=== PATIENT | female | born 1995 | race Caucasian/White ===

== ENCOUNTER 2016-07-31 03:55 | Inpatient (IN) ==
--- NOTE | 2016-07-31 03:21 | OB/GYN Progress Note ---
Date of Encounter: 07/31/16 Time of Encounter: 03:07 - Assessment and Plan (1) 34 weeks gestation of Current Visit: Yes Status: Acute (2) NST (non-stress test) reactive Current Visit: Yes Status: Acute FHT: [130s; moderate variability; 15 x 15 accels: No decelerations] ] (3) premature rupture of membranes (PPROM) with unknown onset of labor Current Visit: Yes Status: Acute Patient describes that around 12:30 this morning she stood up out of bed and felt a large gush of fluid. On physical exam she is actively leaking fluid speculum positive for pooling, positive ferning, positive nitrazine. Patient is at 34 weeks and 6 days premature rupture of membranes. Cervix: dilation 1 cm, 50 % effaced, station -3, consistency medium to soft, position mid. TOCO: [Contractions irregular intervals widely spaced 1/10 pain Continue monitoring As patient has been seen at an outside hospital [facility] we are currently obtaining records, patient has signed consent. GBS status is unknown so will treat at this time with Penicillin. STAT. Labor plan: Patient approves augmentation of labor (cytotec and oxytocin) Pain management: would like epidural and Nubain for pain when indicated. Will monitor and allow patient to labor for 2 hours and then reevaluate cervix for change. May use Cytotec if indicated. Expectant management for labor. Subjective - Subjective Principal diagnosis: Labor evaluation Interval history: Patient is a 21-year-old 011 at 34 weeks and 6 days with a past medical history of tobacco abuse disorder currently at 6-10 cigarettes per day who presents for "water broke". Patient describes that around 12:30 AM she woke up feeling like she had to use the restroom and void but when she stood up huge gush of fluid saturated her clothing and caused her to go through 2 towels and 3 pairs of pants before fluid stopped leaking. Fluid was described as clear without odor. Patient admits: Unprotected intercourse 3 days ago with increase in cramping and lower abdominal pressure increased urinary frequency over the past 7 days since she "lost her mucous plug ", patient reports green vaginal discharge without odor for 1 week. Patient denies: vaginal bleeding, dysuria, pyuria, hematuria, flank pain, fever, chill, abdominal trauma or falls, nausea, vomiting. movements: Normal movements Labor Plan: Induction: Patient did not have plan for induction however she approves the use of Cytotec or oxytocin as necessary and including artificial rupture of membranes Pain control: Epidural; Nubain FHT: [130s; moderate variability; 15 x 15 accels: No decelerations] TOCO: [Contractions irregular intervals widely spaced 1/10 pain] Cervix: dilation 1 cm, 50 % effaced, station -3, consistency medium to soft, position mid. care: [facility] OB Doctor: Chiki OB history: Total pregnancies 3. 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 Last Pap smear 2013 Abnormal Pap smear denies abnormal Pap smears Sexually transmitted infections denies sexually transmitted infections such as chlamydia or gonorrhea Last menstrual period middle December 2015 Menses onset age 12 Labs: Requesting lab information from [facility]. Currently pending. Baby: [Girl] Name: Nettie Mom plans to [bottlefeed] Financial Retirement Plan Specialist: None yet. Would like Barbara umbrella supervisor. Home meds: [ vitamin] Allergies: No known drug allergies Antepartum ROS: loss of fluid, movement normal, contractions, no vaginal bleeding Objective - Vital Signs Vital Signs: Intake and Output 07/30/16 07/30/16 07/31/16 15:59 23:59 07:59 Other: Weight 65 kg Patient Weight 07/31/16 23:59 Weight 65 kg - Exam FHR: auscultation normal, category 1 Auscultation: bilateral: normal Abdomen: Present: normal appearance, soft, gravid Cervical dilation: 0-1 cm Cervix effacement: 50 station: -3
[~2016-07-31 03:55] MED LIST: Famotidine 20 MG/2 ML VIAL IVP PRN; Naloxone 0.4 MG/ML INJ IVP PRN; Ondansetron 4 MG/2 ML VIAL IVP PRN; Penicillin G Potassium 5,000,000 UNIT in D5% in Water (Mini-Bag+) 100 ML IVPB ONE
[2016-07-31] MEDS ORDERED: Ringers Solution, Lactated 1,000 ML IVC SCH (04:00)
[2016-07-31 04:15] LABS: Basophils % 0.4 %; Eosinophils # 0.2 K/mcL (0.0-0.6); Eosinophils % 1.5 %; Hematocrit 33.1 % (35.3-44.9); Hemoglobin 11.1 g/dL (11.5-15.4); Immature Granulocytes % 1.2 % (0-4); Lymphocytes # 1.3 K/mcL (0.6-4.6); Lymphocytes % 12.6 %; Mean Corpuscular HGB Conc 33.5 g/dL (31.6-35.5); Mean Corpuscular Hemoglobin 30.7 pg (28.0-33.3); Mean Corpuscular Volume 91.4 fL (83.0-100.0); Mean Platelet Volume 10.9 fL (9.4-12.4); Monocytes # 0.8 K/mcL (0.0-1.3); Monocytes % 7.3 %; Neutrophils # 7.9 K/mcL (1.6-8.9); Platelet Count 193 K/mcL (140-400); Red Blood Count 3.62 M/mcL (3.82-4.97); Red Cell Distribution Width 13.8 % (11.5-14.5)
[2016-07-31 04:17] LABS: Bilirubin,Urine Negative (Negative); Blood,Urine Negative (Negative); Clarity,Urine Cloudy (Clear); Color,Urine Yellow (Yellow); Glucose,Urine (UA) Normal (Normal); Ketones,Urine Negative (Negative); Leukocyte Esterase,Urine Trace (Negative); Nitrite,Urine Negative (Negative); Protein,Urine Negative (Neg-Trace); Specific Gravity,Urine 1.015 (1.010-1.025); Urobilinogen,Urine Normal (Normal)
[2016-07-31 04:18] LABS: Hyaline Casts,Urine None Seen per lpf (None-Few); Squamous Epithelial Cell,Urine Many per lpf (None-Few)
[2016-07-31 04:26] LABS: Amorphous Sediment,Urine Few (Few); Bacteria,Urine Moderate per hpf (None-Few); Mucus,Urine Few (Few)
--- NOTE | 2016-07-31 04:31 | OB/GYN History & Physical ---
Date of Encounter: 07/31/16 Time of Encounter: 03:07 Assessment and Plan (1) 34 weeks gestation of Current visit: Yes Status: Acute heart rate/tocometer/nitrazine test; speculum exam for ferning given chief complaint of loss of fluid. (2) NST (non-stress test) reactive Current visit: Yes Status: Acute FHT: [130s; moderate variability; 15 x 15 accels: No decelerations] ] (3) premature rupture of membranes (PPROM) with unknown onset of labor Current visit: Yes Status: Acute Patient describes that around 12:30 this morning she stood up out of bed and felt a large gush of fluid. On physical exam she is actively leaking fluid speculum positive for pooling, positive ferning, positive nitrazine. Patient is at 34 weeks and 6 days premature rupture of membranes. Cervix: dilation 1 cm, 50 % effaced, station -3, consistency medium to soft, position mid. TOCO: [Contractions irregular intervals widely spaced 1/10 pain Continue monitoring As patient has been seen at an outside hospital [facility] we are currently obtaining records, patient has signed consent. GBS status is unknown so will treat at this time with Penicillin. STAT. Labor plan: Patient approves augmentation of labor (cytotec and oxytocin) Pain management: would like epidural and Nubain for pain when indicated. Will monitor and allow patient to labor for 2 hours and then reevaluate cervix for change. May use Cytotec if indicated. Expectant management for labor. History of Present Illness Chief complaint: Loss of fluid HPI: Patient is a 21-year-old female 011 at 34 weeks and 6 days with a past medical history of tobacco abuse disorder currently at 6-10 cigarettes per day who presents for "water broke". Patient describes that around 12:30 AM she woke up feeling like she had to use the restroom and void but when she stood up huge gush of fluid saturated her clothing and caused her to go through 2 towels and 3 pairs of pants before fluid stopped leaking. Fluid was described as clear without odor. Patient admits: Unprotected intercourse 3 days ago with increase in cramping and lower abdominal pressure increased urinary frequency over the past 7 days since she "lost her mucous plug ", patient reports green vaginal discharge without odor for 1 week. Patient denies: vaginal bleeding, dysuria, pyuria, hematuria, flank pain, fever, chill, abdominal trauma or falls, nausea, vomiting. movements: Normal movements Labor Plan: Induction: Patient did not have plan for induction however she approves the use of Cytotec or oxytocin as necessary and including artificial rupture of membranes Pain control: Epidural; Nubain FHT: [130s; moderate variability; 15 x 15 accels: No decelerations] TOCO: [Contractions irregular intervals widely spaced 1/10 pain] Cervix: dilation 1 cm, 50 % effaced, station -3, consistency medium to soft, position mid. care: [facility] OB Doctor: Chiki OB history: Total pregnancies 3. 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 Last Pap smear 2013 Abnormal Pap smear denies abnormal Pap smears Sexually transmitted infections denies sexually transmitted infections such as chlamydia or gonorrhea Last menstrual period middle December 2015 Menses onset age 12 Labs: Requesting lab information from [facility]. Currently pending. Baby: [Girl] Name: Nettie Mom plans to [bottlefeed] Benzene Washer: None yet. Would like [place] property developer. Home meds: [ vitamin] Allergies: No known drug allergies Past Med Surg Social Fam HX - Past Medical History Medical history: no medical history Psychiatric history: depression - Past Surgical History Surgical History: no surgical history - Social History Smoking Status: Current every day smoker Packs per day: 5 cigarettes or less Smokeless Tobacco Status: No Alcohol use: none Drug use: none - Family History Mother Living Status: Still Living Hx Family Cardiac Disorders: No Hx Family Respiratory Disorders: No Hx Family Cancer: No Hx Family GI Disorders: No Hx Family Genitourinary Disorders: No Hx Family Endocrine Disorder: No Hx Family Musculoskeletal Disorders: No Hx Family Neuromuscular Disorders: No Hx Family Neurologic Disorders: No Hx Family HEENT Disorders: No Hx Family Autoimmune Disorders: No Hx Family Reproductive Disorders: No Hx Family Psychosocial Disorders: No Hx Family Medical Disorders: No Obstetrical History - Pregnancies : 3 Para: 1 Term: 1 : 0 Ab's: 1 Livin - History/Complications History/Complications: 1 live . one Spontaneous Medications and Allergies Doxylamine/Pyridoxine HCl [Diclegis Dr 10-10 mg Tablet] 2 tab PO HS 03/01/16 [ History] Amoxicillin [Amoxil] 500 mg PO TID #21 capsule 03/20/16 [Rx] Allergies No Known Allergies Allergy (Verified 03/01/16 17:17) Review of System OB - Constitutional Constitutional ROS IM: no chills, no fatigue, no fever(s), no frequent falls, no headache(s) - Nose, mouth, and throat Nose, mouth and throat: no dizziness, no headache(s), no nasal congestion, no post-nasal drip, no sinus pressure, no sore throat, no vertigo - Cardiovascular Cardiovascular: no chest pain, no claudication, no edema, no rapid heart rate, no syncope - Respiratory Respiratory: cough (daily chronic cough tobacco use), no dyspnea, no hemoptysis , no dyspnea on exertion, no pain on inspiration, no excessive phlegm production , no pain with cough - Gastrointestinal Gastrointestinal: cramping, no diarrhea, no dysphagia, no nausea, no vomiting - Genitourinary Genitourinary: urinary urgency, vaginal discharge, no dysuria, no genital lesions - Integumentary Integumentary: no new lesions, no rash, no sores, no swelling, no unusual bruising - Neurological Nerological: no other visual disturbances - Endocrine Endocrine: no palpitations - Hematologic/Lymphatic Hematologic/Lymphatic: no easy bleeding, no easy bruising, no lymphadenopathy Exam - Constitutional Constitutional: well developed, well nourished, no acute distress, average body habitus - HEENT HEENT: EOMI, PERRL, Normocephaly, Mucus Membranes Moist - Neck Neck exam: full ROM, normal inspection, supple, trachea midline - Lungs Respiratory exam: CTAB - Cardiovascular Cardiovascular exam: RRR, +S1, +S2 - Breasts Breast: bilateral: normal - Abdomen Abdomen: Present: bowel sounds normal, gravid, non tender - Extremities Extremities exam: full ROM, normal capillary refill, normal inspection, warm, radial pulses palpable and symetrical Deep Tendon Reflex Grade: 2+ Normal - Vulva Vulva: bilateral: normal - Vagina Vagina: Present: normal moisture - Cervix Cervix: Present: discharge Dilation: 1 Effacement: 50 Station: -3 Results Result Diagrams: 07/31/16 04:00 Abnormal lab results RBC 3.62 M/mcL (3.82-4.97) L 07/31/16 04:00 Hgb 11.1 g/dL (11.5-15.4) L 07/31/16 04:00 Hct 33.1 % (35.3-44.9) L 07/31/16 04:00 Urine Clarity Cloudy (Clear) A 07/31/16 04:00 Ur Leukocyte Esterase Trace (Negative) H 07/31/16 04:00 Urine Microscopic RBC 3-5 per hpf (0-3) H 07/31/16 04:00 Urine Microscopic WBC 5-15 per hpf (0-3) H 07/31/16 04:00 Ur Squamous Epith Cells Many per lpf (None-Few) H 07/31/16 04:00 Urine Bacteria Moderate per hpf (None-Few) H 07/31/16 04:00 Ur Culture Indicated? YES (NO) A 07/31/16 04:00 All other labs normal. - VTE Reasons for not Prescribing Prophylaxis: Treatment not Indicated - Low risk for VTE
--- NOTE | 2016-07-31 05:43 | OB Labor Progress Note ---
Date of Encounter: 07/31/16 Time of Encounter: 05:40 Labor Progress Note - Subjective Subjective: Patient's contractions have phased out. cervix still about 1 cm dilation. will give Cytotec for augmentation of labor and continue to monitor. - Vital Signs Vital Signs: BP 111/59 P 52 resp 16 Temp 36.2 C temporal - Cervix Cervix: 1cm, 50%, -3 - Heart Tones Heart Tones: 130s; moderate variability; 15 x 15 accels: No decelerations - [place]: Contractions have phased out. - Interventions Interventions: Cytotec 50 g by mouth - Plan Plan: Patient's contractions have phased out will augment labor with Cytotec 50 g by mouth and continue to monitor and evaluate cervix at regular intervals for changes.
[2016-07-31] MEDS ORDERED: miSOPROStol 100 MCG TABLET PO SCH (05:45)
[2016-07-31] MEDS ORDERED: Penicillin G Potassium 2,500,000 UNIT in D5% in Water 100 ML IVPB SCH (08:00)
--- NOTE | 2016-07-31 09:29 | OB Labor Progress Note ---
Date of Encounter: 07/31/16 Time of Encounter: 09:27 Labor Progress Note - Subjective Subjective: Pt in bed coping well with contractions - Cervix Cervix: 3/70/-3 - Heart Tones Heart Tones: 145/moderate/+accels/Occasional variable - [place]: 2-3 - Interventions Interventions: IUPC placed. PN records obtained - Plan Plan: IUPC placed, continue current management, anticipate
--- NOTE | 2016-07-31 10:13 | Anesthesia Evaluation PreOp ---
Date of Encounter: 07/31/16 Time of Encounter: 10:11 - Past History Planned Operation: vaginal del, 35wk SROM Cardiac History: Denies any Significant Hx Pulmonary History: Denies Any Significant HX SR. MANAGER History: Denies Any Significant HX Other Medical History: Denies Any Significant HX Anesthesia History: No Prior Anesthetic Complications, Past Anesthesia ( previous epidural without comp) Alcohol Use: none Drug use: none Medications and Allergies Doxylamine/Pyridoxine HCl [Diclegis Dr 10-10 mg Tablet] 2 tab PO HS 03/01/16 [ History] Amoxicillin [Amoxil] 500 mg PO TID #21 capsule 03/20/16 [Rx] Allergies No Known Allergies Allergy (Verified 03/01/16 17:17) Anesthesia Results - Labs 07/31/16 04:00 Anesthesia Exam - HEENT Pupil (Motor): Pupils equal Mallampati: II Teeth: Normal Oral Opening: Greater than 3 - SR. MANAGER LOC: Oriented SR. MANAGER Motor: Normal RUE, Normal LUE, Normal RLE, Normal LLE, Normal Face SR. MANAGER Sensory: Normal: RUE, LUE, RLE, LLE, Face - Cardiac Rhythm: Regular Murmur: None - Pulmonary Breath Sounds: bilateral Clear Respiratory Effort: Symmetrical Anesthesia Assess/Plan ASA Score: 2 Modified Tyson Scale for Level of Consciousness: Cooperative, oriented, and tranquil Anesthetic Plan: General, Regional Monitoring Plan: Standard Monitors
[2016-07-31] MEDS ORDERED: Epidural Premix (fent/bupiv) 110 ML EP ONE (10:14)
--- NOTE | 2016-07-31 10:52 | Anesthesia Procedures ---
Date of Encounter: 07/31/16 Time of Encounter: 10:31 Procedures: Anesthesia - Epidural/Spinal Patient ID/Chart reviewed: Yes Patient examined: Yes OB Eval: Gestational age: 35 OB Eval: : 2 OB Eval: Hx Para: 1 OB Eval: Contractions: Non-stressed pattern Consent Obtained: Yes Site Prep: Aseptic Technique, Sterile prep and drape, 0.5% Chlorhexidine/Alcohol Patient position: upright Local Anesthetic: Lidocaine 1% Amount of Local Anesthetic used: 2 Touhy Needle Gauge: 18 Touhy Needle Depth (cm): 6 Test Dose (1.5% Lido + Epi): Volume given (mls): 3 Test Dose Result: Negative Loading Dose: Other: 12 from solution Loading Dose Administered: Thru Catheter Infusion Med: 0.125% Bupivacaine w/ 2 mcg/ml Fentanyl Infusion Rate (mls/hr): [address]: Tegaderm, Tape Interspace Used: L3-L4 Loss of Resistance (SERVANDO): Yes (saline) Blood: No CSF: No Paresthesia: No Procedure: vss though out, FHR stable per RN's
[2016-07-31] MEDS ORDERED: Oxytocin 20 units/ LR 1000 mL 20 UNIT/1,000 ML BAG IVC ONE ×2 (11:53→15:12)
--- NOTE | 2016-07-31 13:31 | OB/GYN Procedure Note ---
Delivery - Delivery Date: 07/31/16 Provider: Kush Pratt Intrapartum events: none, other(please specify) (PPROM) Delivery induction: none Delivery monitor: external FHT, external uterine, internal uterine Anesthesia: epidural Estimated Blood Loss: 200 - Infant (s) A Delivery Date: 07/31/16 Presentation: vertex Position: OA Route of delivery: Gender: Female Viability: Viable at 1 minute: 8 at 5 mins: 9 Shoulder Dystocia: not encountered Placenta: spontaneous - Repair Episiotomy: none Laceration Description: None - Complications Delivery complications: none - Disposition Mom disposition: stable in LDR [place] disposition: taken to nursery - Comments Comments: Patient began maternal bearing down efforts to of live born female. Vertex delivered OA. Shoulders easily followed. No nuchal cord or shoulder dystocia encountered. Infant placed on maternal abdomen with spontaneous cry. Delayed cord clamping. Placenta delivered spontaneously (Bandar) and complete upon inspection. Perineum and vagina without laceration. Pitocin per policy. Uterus firm. EBL 200mL. Nursery team and director automotive at bedside for delivery and infant evaluation. Delivery by Casa Raygoza CNM and Kush Pratt DO. Dr. Briones present for entirety of procedure.
[2016-07-31] MEDS ORDERED: Acetaminophen 325 MG TABLET PO PRN (15:53)
[2016-07-31] MEDS ORDERED: Ibuprofen 600 MG TABLET PO PRN (15:53)
[2016-07-31] MEDS ORDERED: Ondansetron 4 MG/2 ML VIAL IVP PRN (15:53)
[2016-07-31] MEDS ORDERED: Oxytocin 20 units/ LR 1000 mL 20 UNIT/1,000 ML BAG IVC SCH (15:53)
[2016-08-01 04:38] VITALS: BP 119/85
[2016-08-01 05:24] LABS: Basophils % 0.3 %; Eosinophils # 0.2 K/mcL (0.0-0.6); Eosinophils % 1.4 %; Hematocrit 29.8 % (35.3-44.9); Immature Granulocytes % 0.8 % (0-4); Lymphocytes # 1.3 K/mcL (0.6-4.6); Lymphocytes % 11.5 %; Mean Corpuscular HGB Conc 33.6 g/dL (31.6-35.5); Mean Corpuscular Hemoglobin 31.3 pg (28.0-33.3); Mean Corpuscular Volume 93.4 fL (83.0-100.0); Mean Platelet Volume 11.5 fL (9.4-12.4); Monocytes # 0.8 K/mcL (0.0-1.3); Monocytes % 7.3 %; Neutrophils # 9.1 K/mcL (1.6-8.9); Platelet Count 202 K/mcL (140-400); Red Blood Count 3.19 M/mcL (3.82-4.97); Segmented Neutrophils % 78.7 %
[2016-08-01] MEDS ORDERED: Prenatal Vit/FA 1 EACH TABLET PO SCH (09:00)
--- NOTE | 2016-08-01 11:31 | Discharge Summary ---
Date of Encounter: 07/31/16 Time of Encounter: 11:28 - Discharge Diagnosis (1) Vaginal delivery Priority: Primary Status: Acute Comments: Patient doing well after vaginal delivery. States that lochia is light and without clots Pain is well controlled with motrin Patient is bottle feeding is in special care nursery due to gestational age of 34.6 weeks Patient to be discharged to room per guesting policy - Discharge Medications Prescriptions: Ibuprofen [Motrin] 600 mg PO Q6HR PRN #30 tablet PRN Reason: Cramping Home Medications: Docusate [Colace] 100 mg PO BID capsule 08/01/16 [Rx] Ferrous Sulfate 325 mg PO DAILY tablet 08/01/16 [Rx] Ibuprofen [Motrin] 600 mg PO Q6HR PRN #30 tablet 08/01/16 [Rx] Vit/FA 1 each PO DAILY tablet 08/01/16 [Rx] Allergies/Adverse Reactions: Allergies No Known Allergies Allergy (Verified 03/01/16 17:17) Data Procedures and tests throughout hospitalization: Laboratory Tests 07/31/16 07/31/16 08/01/16 04:00 04:00 04:47 WBC 10.2 11.6 H RBC 3.62 L 3.19 L Hgb 11.1 L 10.0 L Hct 33.1 L 29.8 L MCV 91.4 93.4 MCH 30.7 31.3 MCHC 33.5 33.6 RDW 13.8 14.0 Plt Count 193 202 MPV 10.9 11.5 Immature Gran % 1.2 0.8 Seg Neutrophils % 77.0 78.7 Lymphocytes % 12.6 11.5 Monocytes % 7.3 7.3 Eosinophils % 1.5 1.4 Basophils % 0.4 0.3 Neutrophils # 7.9 9.1 H Lymphocytes # 1.3 1.3 Monocytes # 0.8 0.8 Eosinophils # 0.2 0.2 Basophils # 0.0 0.0 Urine Color Yellow Urine Clarity Cloudy A Urine pH 7.0 Ur Specific [place] 1.015 Urine Protein Negative Urine Glucose (UA) Normal Urine Ketones Negative Urine Blood Negative Urine Nitrite Negative Urine Bilirubin Negative Urine Urobilinogen Normal Ur Leukocyte Esterase Trace H Urine Microscopic RBC 3-5 H Urine Microscopic WBC 5-15 H Ur Squamous Epith Cells Many H Amorphous Sediment Few Urine Bacteria Moderate H Hyaline Casts None Seen Urine Mucus Few Ur Culture Indicated? YES A Labs on day of discharge: Labs from last 24 hours 08/01/16 04:47 WBC 11.6 H RBC 3.19 L Hgb 10.0 L Hct 29.8 L MCV 93.4 MCH 31.3 MCHC 33.6 RDW 14.0 Plt Count 202 MPV 11.5 Immature Gran % 0.8 Seg Neutrophils % 78.7 Lymphocytes % 11.5 Monocytes % 7.3 Eosinophils % 1.4 Basophils % 0.3 Neutrophils # 9.1 H Lymphocytes # 1.3 Monocytes # 0.8 Eosinophils # 0.2 Basophils # 0.0 Date of admission: 07/31/16 03:55 Primary care physician: Chuck Lucero MD Consults: 07/31/16 15:53 Consult to Home Health Manager [CONS] Routine Comment: Vaginal delivery, consult needed Consult to Cookie Padder [CONS] Routine Reason for SW Consult: 34wk delivery 07/31/16 16:45 Consult to Cookie Padder (W&C) [CONS] Routine Reason For Exam: Reason for SW Consult: Visitor voiced that FOB was upset and he tends to throw things. FOB appeared agitated when this nurse entered room but pt declined anything was wrong. Discharging clinician: Glenna Butler Anticipated date of discharge: 08/01/16 - Patient Status Disposition: Home, Self-Care Condition: Good Functional capacity at discharge: independent ambulation Overall status at discharge: patient is back to baseline - Discharge Instructions Follow Up With: Chuck Lucero MD [Primary Care Provider] - Audrey Chang CNM [Non-Partnered Physician] - (August 29, 2016 @ 1:15 pm) - Diet and Activity Activity: increase activity as tolerated Diet: regular diet Hospital Course Reason for admission: IUP - , rupture of membranes Delivery: Episiotomy: none Laceration: none Other procedures: none complications: none Discharge diagnosis: delivery baby: female Time spent discussing smoking cessation with patient: 3 to 10 minutes Time Attestation: Total time spent providing and/or coordinating discharge services: Exam - Constitutional Vitals: Temp Pulse Resp BP Pulse Ox 97.6 F 83 16 119/85 98 08/01/16 03:15 08/01/16 03:15 08/01/16 08:00 08/01/16 03:15 08/01/16 03:15 General appearance IM: cooperative, A&O X 3, pleasant, no acute distress - Respiratory Respiratory exam: Present: CTAB - Cardiovascular Cardiovascular exam IM: Present: RRR, +S1, +S2 - GI/Abdominal GI/Abdominal exam IM: normal bowel sounds, soft - Uterine Tone: Firm Uterus Position: At Umbilicus, Midline - Extremities Exam Extremities exam IM: Present: full ROM, normal capillary refill, radial pulses palpable and symetrical - Neurological Exam Neurological exam: alert, oriented X3
--- NOTE | 2016-08-01 12:54 | OB Labor Progress Note ---
Date of Encounter: 07/31/16 Time of Encounter: 12:52 Labor Progress Note - Subjective Subjective: Patient resting comfortably in bed. - Cervix Cervix: 3-4/70/-2 soft, mid-position - Heart Tones Heart Tones: 150's moderate variability 15x15 accels present
== END 2016-08-01 12:48 | disposition home or self-care (01) | DRG 560 ==
LOC: 1NENULAB → 1NENUOBS 15:52
PROVIDERS: ADMIT Student in an Organized Health Care Education/Training Program; ATTEND Student in an Organized Health Care Education/Training Program